=== PATIENT | male | born 1990 | race Caucasian/White ===

== ENCOUNTER 2021-04-03 16:02 | Outpatient (CLI) | payer OTHER, SELFPAY ==
--- NOTE | ~2021-04-03 | XR_ITS ---
EXAMINATION: XR chest 2V 04/03/2021 16:45 INDICATION: Hemoptysis. Right-sided chest pain and shortness of breath. PROCEDURE: 2 view chest COMPARISON: 12/26/2012 FINDINGS: The lungs are clear. The cardiomediastinal silhouette is within normal limits. There are no pleural effusions. There is no pneumothorax suspected. IMPRESSION: 1: NO ACUTE CARDIOPULMONARY DISEASE. Reviewed, dictated and finalized at location B.
[2021-04-03 16:38] LABS: Basophils Absolute Auto 0.05 K/mm3 (0.00-0.10); Basophils Percent Auto 0.7 % (0.0-1.0); Eosinophils Absolute Auto 0.43 K/mm3 (0.02-0.50); Eosinophils Percent Auto 6.3 % (1.0-6.0); Hematocrit 47.3 % (40.0-54.0); Hemoglobin 16.4 g/dL (14.0-18.0); Immature Granulocyte Absolute 0.02 K/mm3 (0.00-0.00); Immature Granulocyte Percent A 0.3 % (0.0-0.0); Lymphocytes Absolute Auto 1.68 K/mm3 (1.10-4.50); Lymphocytes Percent Auto 24.6 % (18.0-42.0); Mean Corpuscular HGB Conc 34.7 g/dL (32.0-36.0); Mean Corpuscular Hemoglobin 31.1 pg (27.0-31.0); Mean Corpuscular Volume 89.6 fL (78.0-102.0); Mean Platelet Volume 8.9 fl (8.7-11.0); Monocytes Absolute Auto 0.67 K/mm3 (0.10-0.90); Monocytes Percent Auto 9.8 % (2.0-11.0); Neutrophils Percent Auto 58.3 % (50.0-70.0); Platelet Count Result 304 K/mm3 (150-420); Red Blood Count 5.28 M/mm3 (4.70-6.10); Red Cell Distribution Width 11.9 % (11.6-14.4); White Blood Count 6.8 K/mm3 (4.8-10.8)
[2021-04-03 16:47] LABS: Add Urine Microscopic? NO; Appearance Urine Clear (Clear); Bilirubin Urine Negative (Negative); Blood Urine Negative (Negative); Color Urine Yellow (Yellow); Glucose Urine UA Negative (Negative); Ketones Urine Negative (Negative); Leukocyte Esterase Ur Negative (Negative); Nitrate Urine Negative (Negative); Protein Urine Negative (Negative); Urobilinogen Urine 0.2 mg/dL (0.2-1.0)
[2021-04-03 16:53] LABS: Partial Thromboplastin Time 24.8 SEC (23.90-30.70); Prothrombin Time 10.3 Seconds (9.50-12.10)
[2021-04-03 17:25] LABS: Alanine Aminotransferase 46 U/L (16-63); Alkaline Phosphatase 65 U/L (46-116); Anion Gap 7 mmol/L (8-16); Aspartate Amino Transferase 23 U/L (15-37); Bilirubin,Total 0.4 mg/dL (0.00-1.00); Blood Urea Nitrogen 8 mg/dL (7-18); CRP < 0.5 mg/dL (0.0-0.9); Carbon Dioxide 29 mmol/L (21-32); Chloride 105 mmol/L (98-108); Estimated Glomerular Filt Rate > 60; Glucose 108 mg/dL (70-99); Osmolality Calculated 291 mOsm/kg (285-295); Potassium 4.2 mmol/L (3.5-5.1); Sodium 141 mmol/L (136-145); Total Protein 6.9 g/dL (6.4-8.2)
== END 2021-04-03 16:03 | disposition home or self-care (01) ==
LOC: CHSIMG 16:08
PROVIDERS: PCP Internal Medicine; Visit Provider Internal Medicine
DX: R04.2 Hemoptysis (principal)
CPT/HCPCS: 36415; 71046; 80053; 81003; 85025; 85610; 85730; 86140

== ENCOUNTER 2021-04-10 09:27 | Outpatient (CLI) | payer OTHER, SELFPAY ==
--- NOTE | ~2021-04-10 | CT_ITS ---
EXAMINATION: CTA chest PE protocol EXAM DATE: 04/10/2021 10:03 INDICATION: Hemoptysis hemoptysis x3 over last 1.5mo, chest pain ant all over, post low. TECHNIQUE: Spiral CTA of the chest (pulmonary arteries) was performed with 100 cc Omnipaque 350 intr avenous contrast injection. Images were acquired during the pulmonary arterial phase. Coronal maxi mum intensity projection 3D-reconstructions were created by the technologist on dedicated workstation . Axial, coronal and sagittal reformatted images were reviewed. The dose-length product (DLP) for t his examination was 578.12 mGy-cm. The exposure was tailored according to patient size (auto mA exp osure control), and iterative reconstruction (ASIR) was used as additional dose reduction technique. Correlation is made to chest x-ray 04/03/2021. FINDINGS: Pulmonary arteries are well opacified and without intraluminal filling defects. No thora cic aortic dissection. The lungs are clear. There are no pleural or pericardial effusions. Trach eobronchial tree is patent. There is no mediastinal, hilar or axillary lymphadenopathy. There is no pneumothorax. Heart normal in size. No evidence of coronary arterial calcification. Upper abd omen is unremarkable. The bones are unremarkable. IMPRESSION: Unremarkable CT pulmonary exam. Reviewed, dictated and finalized at location B.
== END 2021-04-10 09:28 | disposition home or self-care (01) ==
LOC: CHSIMG 09:29
PROVIDERS: PCP Internal Medicine; Visit Provider Internal Medicine
DX: R04.2 Hemoptysis (principal)
CPT/HCPCS: 71275; Q9967

== ENCOUNTER 2021-05-11 14:29 | Outpatient (CLI) | payer OTHER, SELFPAY ==
--- NOTE | 2021-05-15 08:30 | WPDPFTINT ---
PFT Procedure Performed PFT Procedure Performed Spirometry with Pre/Post Bronchodilator Plethysmography (Lung Vol) Diffusing Cap (DLCO) Flow Vol Loop PFT Interpretation This is a pulmonary function test with pre and post-bronchodilator spirometry, plethysmography and diffusing capacity. The test was performed and results interpreted in accordance with the 2019 and 2005 ATS/ERS Task Force guidelines respectively using the Global Lung Function Initiative-2012 reference equations. Patient demonstrated good effort and cooperation. Reproducibility criteria were met. The quality of the pre bronchodilator spirometry maneuver was Grade A and post bronchodilator spirometry maneuver was Grade A. Findings: Spirometry: The contour of the inspiratory and expiratory flow tracing are normal. The pre bronchodilator FVC is 4.82 L, 88% predicted. The pre bronchodilator FEV1 is 3.98 L, 88% predicted. The FEV1: FVC ratio was 83%. The post bronchodilator FVC is 4.92 L, representing a 2% increase. The post bronchodilator FEV1 is 4.24 L, representing a 7% increase. Plethysmography: The total lung capacity is 5.62 L, 81% predicted. Functional residual capacity is 2.02 L, 60% predicted. The residual volume is 0.70 L, 43% predicted. Diffusing capacity: The absolute diffusion capacity is 31.1, 88% predicted. The diffusing capacity corrected for alveolar volume is 5.46, 106% predicted. Impression: The spirometry is normal without evidence of an obstructive abnormality. There is no significant improvement after inhaling a single dose of albuterol. There is an isolated decrease in the residual volume with a normal total lung capacity. This is an abnormal but nonspecific lung volume pattern. The diffusing capacity is normal. There are no prior studies for comparison
== END 2021-05-11 14:30 | disposition home or self-care (01) ==
PROVIDERS: PCP Internal Medicine; Visit Provider Internal Medicine Critical Care Medicine
DX: R04.2 Hemoptysis (principal); Z87.891 Personal history of nicotine dependence
CPT/HCPCS: 94060; 94726; 94729

== ENCOUNTER 2021-05-29 08:23 | Outpatient (CLI) | payer OTHER, SELFPAY ==
--- NOTE | 2021-05-29 08:32 | ECHO_ITS ---
Patient Info Name: Orville Gaona Age: 30 years : 1990 Gender: Male Ht: 70 in Wt: 200 lbs BSA: 2.14 m2 HR: 53 bpm BP: 131 / 86 mmHg Exam Date: 05/29/2021 8:54 AM Exam Location: [facility] Patient Status: Outpatient Admit Date: 05/29/2021 Staff Ordering Physician: Danielle Love MD Audograph Operator: Mitch Tam RDCS, RT Attending Provider: Danielle Love MD Referring Physician: Kate RHODES; Exam Type: CA echo doppler color flow Study Info Indications R07.89 - Other chest pain Complete two-dimensional, color flow and Doppler transthoracic echocardiogram is performed. Strain analysis performed. Summary 1. Complete two-dimensional, color flow and Doppler transthoracic echocardiogram is performed. 2. Left ventricular chamber dimension is normal. 3. Left ventricular systolic function is normal, estimated at 55-60%. 4. The left ventricular diastolic function is normal. 5. E/e' 6 is not elevated. 6. Global longitudinal strain is mildly abnormal at -16.9%. 7. There is trace tricuspid valve regurgitation. Left Ventricle E/e' 6 is not elevated. Global longitudinal strain is mildly abnormal at -16.9%. Left ventricular chamber dimension is normal. Left ventricular systolic function is normal, estimated at 55-60%. The left ventricular diastolic function is normal. Right Ventricle Right ventricular systolic function is normal and with normal TAPSE 1.8 cm.. Right ventricular chamber dimension is normal. Left Atria Left atrial chamber dimension is normal. Right Atria Right atrial chamber dimension is normal. Aortic Valve The aortic valve is trileaflet. There is no aortic valve stenosis. There is no aortic valve regurgitation. Pulmonic Valve There is no pulmonic regurgitation. Mitral Valve There is no mitral valve stenosis. There is trace mitral valve regurgitation. Tricuspid Valve RVSP is not calculated due to an inadequate TR jet. There is trace tricuspid valve regurgitation. Pericardium/Pleural There is no pericardial effusion. Inferior Vena Cava Normal inferior vena cava with >50% collapse upon inspiration consistent with normal right atrial pressure, 5 mmHg. Aorta The aortic root size at the sinus of Valsalva is normal. Left Ventricular Outflow Tract Name Value Normal LVOT 2D LVOT Diameter 2.0 cm LVOT Doppler LVOT Peak Gradient 4 mmHg LVOT Mean Gradient 2 mmHg LVOT VTI 19 cm LVOT VTI/AV VTI Ratio 0.9 LVOT Stroke Volume 59 ml LVOT CO 3.8 l/min LVOT CI 1.8 l/min/m2 Mitral Valve Name Value Normal MV Doppler MV Decel Hardeman 296 cm/s2 MV PHT
== END 2021-05-29 08:24 | disposition home or self-care (01) ==
PROVIDERS: PCP Internal Medicine; Visit Provider Internal Medicine Critical Care Medicine
DX: R07.9 Chest pain, unspecified (principal)
CPT/HCPCS: 93306

== ENCOUNTER 2021-06-23 02:55 | Day surgery (SDC) | payer OTHER, SELFPAY ==
[2021-06-13 15:10] VITALS: BMI 28.7
[2021-06-23 07:42] VITALS: BP 121/82; PULSE 62; RESP 18; TEMP 35.9; O2SAT 98; BMI 28.7
[2021-06-23] MEDS: LACTATED RINGERS 1,000 ML 150 ML IV CONT (07:52)
--- NOTE | 2021-06-23 08:00 | PM.HPGS ---
History of Present Illness History of Present Illness Consent: Risks, benefits, and alternatives have been discussed and questions answered. Patient agrees to proceed with procedure. Chief complaint: hematemesis Narrative: Orville Gaona is a 31 year old male with sore discomfort and episode of coughing up blood, not taking any ppi and never had egd Review of Systems Constitutional: Constitutional: Denies headache(s) and Denies weakness Eyes: Eyes: Denies blurry vision ENT: Reports Normal hearing present, Denies headache(s) and Denies neck pain Cardiovascular: Cardiovascular: Denies chest pain and Denies dyspnea Respiratory: Respiratory: Denies dyspnea Gastrointestinal: Gastrointestinal: Reports no additional gastrointestinal complaints Genitourinary: Genitourinary: Denies dysuria Musculoskeletal: Musculoskeletal: Denies neck pain Integumentary/Breasts: Skin/Breast: Denies dry skin Neurologic: Reports Normal hearing present, Denies headache(s) and Denies weakness Psychiatric: Psychiatric: Denies anxiety Endocrine: Endocrine: Denies change in body appearance Hematologic/Lymphatic: Hematologic/Lymphatic: Denies easy bleeding Allergic/Immunologic: Allergic/Immunologic: Denies urticaria [facility] Past Medical History Medical History (Updated 06/23/21 @ 08:19 by Lv Herrmann MD) Anxiety Social History Social History (Updated 04/27/21 @ 12:54 by Tamara Tavarez) Smoking packs per day: 1 Smoking cigarettes per day: 20.0 Years smoked: 9 Smoking pack-years: 9.00 Smoking status: Former smoker Tobacco type: cigarettes Alcohol intake: current Alcohol use details: socially Substance use: never Substance use type: does not use Living arrangements: with family Spiritual care concerns: No Meds Home Medications and Allergies Home Medications Medication Instructions Recorded Confirmed Type cetirizine [All Day Allergy 10 mg PO DAILY 06/13/21 06/13/21 History (cetirizine)] montelukast 10 mg PO DAILY 06/13/21 06/13/21 History Allergies Allergy/AdvReac Type Severity Reaction Status Date / Time aspirin AdvReac Mild Hives Verified 06/23/21 07:42 Penicillins AdvReac Mild Hives Verified 06/23/21 07:42 Vital Signs Vital Signs - 24 hr 06/23/21 07:42 Temperature 96.6 F L Pulse Rate 62 Respiratory Rate 18 Blood Pressure 121/82 Pulse Oximetry 98 Exam Const: General: comfortable and no acute distress HENMT: General nose exam: Normal nares present Eyes: General: appearance normal, both eyes and all related structures Neck: Neck: no JVD Resp: Auscultation: clear to auscultation bilaterally Cardio: Rate: regular rate Rhythm: regular rhythm GI: Inspection: non-distended GI Palp: Yes Soft to palpation Skin: General skin exam: normal color Neuro: General: gait normal Speech: normal speech Extrem: General: normal to inspection Psych: Mental Status: mental status grossly normal Assessment and Plan Assessment and plan (1) Hemoptysis: Code(s): R04.2 - Hemoptysis Status: Acute Assessment and Plan: will assess with egd
--- NOTE | 2021-06-23 08:25 | P.PNAN_ITS ---
Anes - Initial Pre Proc Eval Procedure: Operation Date: 06/23/21 08:30 Proposed Procedures p Esophagogastroduodenoscopy - Bart Frye MD Date/Time: 06/23/21 08:25 Surgeon: Bart Frye MD Pre Op Diagnosis: hematemesis Patient Data Age: 31 Gender: M Height: 1.78 m Weight: 90.9 kg Last Vital Signs Temp 96.6 F L 06/23/21 07:42 Pulse 62 06/23/21 07:42 Resp 18 06/23/21 07:42 BP 121/82 06/23/21 07:42 Pulse Ox 98 06/23/21 07:42 Allergies Allergy/AdvReac Type Severity Reaction Status Date / Time aspirin AdvReac Mild Hives Verified 06/23/21 07:42 Penicillins AdvReac Mild Hives Verified 06/23/21 07:42 Home Medications Medication Instructions Recorded Confirmed Type cetirizine [All Day Allergy 10 mg PO DAILY 06/13/21 06/13/21 History (cetirizine)] montelukast 10 mg PO DAILY 06/13/21 06/13/21 History Patient hx anesthesia problems: none Family hx anesthesia problems: none [facility] Past Medical History Medical History (Updated 06/23/21 @ 08:19 by Lv Herrmann MD) Anxiety Social History Social History (Updated 04/27/21 @ 12:54 by Tamara Tavarez) Smoking packs per day: 1 Smoking cigarettes per day: 20.0 Years smoked: 9 Smoking pack-years: 9.00 Smoking status: Former smoker Tobacco type: cigarettes Alcohol intake: current Alcohol use details: socially Substance use: never Substance use type: does not use Living arrangements: with family Spiritual care concerns: No Anes - Eval Final PreProcedure Day of Procedure 06/23/21 08:25 Patient weight: obese Heart: regular rate and rhythm Lungs: clear to auscultation Airway: Mallampati scale class II Neurological: alert and oriented Last oral intake: >/= 8 hours ASA classification: II Emergent: no Anesthetic plan: proceed Anesthesia type and monitoring: general GIVS and standard monitoring Informed Consent: The patient's anesthetic plan and its attendant risks and benefits were discussed with the patient/family/POA. Questions were solicited and answers provided to the satisfaction of the patient/family/POA.
[2021-06-23 08:53] VITALS: BP 104/72; PULSE 58; RESP 12; O2SAT 100
[2021-06-23 09:03] VITALS: BP 119/89; PULSE 54; RESP 16; O2SAT 100
[2021-06-23 09:13] VITALS: BP 127/73; PULSE 56; RESP 18; O2SAT 100
== END 2021-06-23 09:24 | disposition home or self-care (01) ==
PROVIDERS: PCP Internal Medicine; Visit Provider Internal Medicine Gastroenterology
PROC: 0DJ08ZZ Inspection of Upper Intestinal Tract, Via Natural or Artificial Opening Endoscopic (ICD-10-PCS; CPT 43235; principal; 2021-06-23 08:30)
DX: R04.2 Hemoptysis (principal); J02.9 Acute pharyngitis, unspecified; K22.70 Barrett's esophagus without dysplasia; K20.90 Esophagitis, unspecified without bleeding; K29.70 Gastritis, unspecified, without bleeding; K92.0 Hematemesis; Z87.891 Personal history of nicotine dependence; E66.9 Obesity, unspecified; Z68.28 Body mass index [BMI] 28.0-28.9, adult
CPT/HCPCS: 43239; 88305; J2704; J7120